=== PATIENT | male | born 1935 | race Caucasian/White ===

== ENCOUNTER 2021-01-27 13:54 | Outpatient (CLI) | payer MEDICARE, OTHER, SELFPAY ==
[2021-01-27] MEDS: ferric carboxy (IVPB) 750 MG in sodium chloride 0.9% (100 ml) 100 ML 460 MG IV (15:45)
--- NOTE | 2021-01-27 19:12 | ONC CON_ITS ---
Dr. Sommers New Patient Note Patient: Jeff Barros Unit #: [id number]: 1935 Dicatated By: Jamey Sommers M.D.Date of Visit: Jan 27, 2021 Onc MED New Patient/Consult Referring Physician: Anita SANTANA Chief Complaint: Anemia. History of Present Illness: This is an 85-year-old man with iron deficiency anemia. He has hypertension and type 2 diabetes. He also has GERD and a history of diverticulitis. He has been anemic, and he has been on oral iron supplementation with polysaccharide iron complex 150 mg 3 times daily. Despite that, his repeat laboratory studies on 12/11/2020 still showed mild to moderately severe anemia with hemoglobin 10.7 g and hematocrit 34.7%. The red cell indices were hypochromic/microcytic. The white blood cell count was 6600 and the platelet count was 179,000. Comprehensive metabolic profile was unremarkable. His B12 level was normal at 377 pg/mL. His serum iron studies showed low serum iron at 33 mcg/dL with transferrin saturation 6% and the ferritin was low at 7 ng/mL, consistent with iron deficiency. He says he feels okay at rest, but he does not have much energy, and it does not last long with activity. He is able to do some light work. ECOG score is 1. His appetite is good and his weight is stable. He has no fever or night sweats. He has occasional cough. He does not complain of shortness of breath or chest pain. He has not been having nausea or abdominal pain, and his acid reflux is adequately managed with medication. He has been having frequent bowel movements for quite a while, but he has not been aware of any blood in the stool or black stools. He has had a previous colonoscopy. He thinks it was about 12 years ago. He has urinary frequency and nocturia, and he also has some incontinence. He has joint pain, mainly in the hips and shoulders. He has just occasional headache. He does not complain of dizziness. 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 Past Medical History: His medical history includes anemia, depression, gastroesophageal reflux disease, hypertension, and type II diabetes. He has a history of diverticulitis. Past Surgical History: His only surgery was an appendectomy. He previously had a colonoscopy, estimated to have been 12 years ago. Medications: glipiZIDE (10 mg) Tablet Oral b.i.d., metFORMIN HCl (1000 mg) Tablet Oral b.i.d., Metoprolol Tartrate (50 mg) Tablet Oral b.i.d., Omeprazole Capsule Delayed Release Oral PRN, Sertraline HCl (50 mg) Tablet Oral daily Allergies: AMBER Inhibitors Social History: Mr. Barros is . He is retired. 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 He has a history of smoking for 4 years when he first got out of school, none since then. He does not drink alcohol. Family History: Father of blood poisoning following an injury. His mother had Parkinson's disease. A brother and a sister both in childbirth. Review Of Symptoms: Constitutional - He feels okay at rest, but his energy does not last long with activity. He is able to do light work. His appetite is good and his weight is stable. He has no fever or night sweats. ECOG score is 1, Eyes - He has cataracts, ENMT - He has hearing loss. He has sinus congestion/drainage. He has had to have teeth pulled. He occasionally has sore throat. No difficulty swallowing, Hematologic/Lymphatic - He has easy bruising. He has been anemic, Respiratory - No shortness of breath. He has occasional cough. No pleuritic pain or hemoptysis, Cardiovascular - No angina pain. No palpitations, Gastrointestinal - No nausea or vomiting. His acid reflux is adequately managed with medication. No diarrhea or constipation. He has been having frequent bowel movements for quite a while. He has hemorrhoids. He has not been aware of any blood in the stool or black stools, Genitourinary (M) - No dysuria or hematuria. He has urinary frequency and nocturia, and he has some bladder incontinence, Musculoskeletal - He has joint pain, mainly in the hips and shoulders., Neurologic - He has occasional headache. No dizziness. He has neuropathy with the diabetes, Psychiatric - He has anxiety and depression. He does not sleep well at night. Vital Signs: Performed on Jan 27, 2021 15:06: 5, 5, 24.69, 1.87 sq.m, 68 in, 98 %, 51 /min (LOW), 18 /min, 199/72 mm(hg) (HIGH), 97.1 F (LOW), and 162.4 lbs (HIGH). Physical Examination: Constitutional - He appears elderly and somewhat frail generally, Eyes - Sclerae nonicteric. Conjunctivae clear, ENMT - No lesions noted in the oral cavity, Neck - No mass or thyromegaly, Hematologic/Lymphatic - No cervical, clavicular, or axillary adenopathy, Respiratory - Lungs are clear with good air movement bilaterally, Cardiovascular - Heart rhythm is regular with a bradycardia. There is no murmur, gallop, or rub noted, Abdomen - Soft and non-tender. Liver and spleen are not enlarged. There is no abdominal mass or ascites noted and there is no inguinal adenopathy, Back/Spine - No spine or CVA tenderness noted, Extremities - No edema. Posterior tibial pulses are palpable bilaterally, Integumentary - No rashes. No suspicious skin lesions noted, Neurologic - No focal neurologic deficits noted. Problem List: 1. Iron deficiency anemia. It is uncertain to what extent it may be due to GI blood loss versus inadequate oral iron absorption, but it is not correcting on an adequate dosage of oral iron replacement. 2. Hypertension. 3. Type 2 diabetes. 4. GERD. 5. History of diverticulitis. 6. Anxiety/depression. Problems Addressed with this Encounter and Plan: Patient with iron deficiency anemia. It is uncertain to what extent it may be due to GI blood loss versus inadequate oral iron absorption, but it is not correcting on an adequate dosage of oral iron replacement. As such, he will be given parenteral iron replacement with 2 infusions of Injectafer. The first will be administered today at a standard dose of 750 mg. He return in 1 week for the second infusion, and he will then be scheduled for 1 month interval follow-up. In the meantime, he will bring in a stool sample for IFOB. If it is positive, he will have further GI evaluation as indicated. Signed By: Jamey Sommers M.D. <<Signature on File>>
== END 2021-01-27 13:55 | disposition home or self-care (01) ==
LOC: ONCMED 14:07
PROVIDERS: Visit Provider Internal Medicine Hematology & Oncology
DX: D50.9 Iron deficiency anemia, unspecified (principal); I10 Essential (primary) hypertension; E11.9 Type 2 diabetes mellitus without complications; K21.9 Gastro-esophageal reflux disease without esophagitis; K57.92 Diverticulitis of intestine, part unspecified, without perforation or abscess without bleeding; F32.A Depression, unspecified; Z79.84 Long term (current) use of oral hypoglycemic drugs; Z79.899 Other long term (current) drug therapy; Z87.891 Personal history of nicotine dependence
CPT/HCPCS: 96365; 99205; J1439

== ENCOUNTER 2021-03-11 09:54 | Outpatient (CLI) | payer MEDICARE, OTHER, SELFPAY ==
[2021-02-03] MEDS: ferric carboxy (IVPB) 750 MG in sodium chloride 0.9% (100 ml) 100 ML 460 MG IV (15:27)
[2021-03-11 10:42] LABS: Basophils # 0.1 10^3/uL (0.0-0.1); Basophils % 0.8 %; Eosinophils # 0.2 10^3/uL (0.0-0.8); Eosinophils % 2.3 %; Hematocrit 43.8 % (42.0-52.0); Hemoglobin 14.4 g/dL (11.7-16.6); Lymphocytes # 1.6 10^3/uL (0.8-4.8); Lymphocytes % 24.4 %; Mean Corpuscular HGB Conc 32.9 g/dL (30.0-36.0); Mean Corpuscular Hemoglobin 27.2 pg (28.0-34.0); Mean Corpuscular Volume 82.8 fl (80-94); Mean Platelet Volume 9.7 fL (7.4-10.4); Monocytes # 0.5 10^3/uL (0.2-0.9); Monocytes % 7.9 %; Neutrophils # 4.24 10^3/uL (1.8-7.7); Neutrophils % 64.3 %; Nucleated Red Blood Cells % 0 %; Platelet Count 164 10^3/cmm (130-400); Red Blood Count 5.29 10^6/uL (4.1-5.3); Red Cell Distribution Width 20.2 % (12.1-15.1); White Blood Count 6.6 10^3/uL (4.0-10.0)
[2021-03-11 10:59] LABS: Ferritin 226 ng/mL (30-400); Iron 105 ug/dL (59-158); Total Iron Binding Capacity 362 mcg/dl; Unsaturated Iron Binding 257 ug/dL (112-347)
--- NOTE | 2021-03-15 10:52 | ONC FU_ITS ---
Dr. Sommers Patient Follow-Up Note Patient: Jeff Barros Unit #: [id number]: 1935 Dicatated By: Jamey Sommers M.D.Date of Visit:Mar 11, 2021 Onc Med Follow-up/Prog Note Chief Complaint: Anemia. History of Present Illness: This is an 85-year-old man with iron deficiency anemia. I had seen him initially on 01/27/2021 after he had been found to have persistent anemia despite oral iron supplementation. His laboratory studies on 12/11/2020 had shown hemoglobin low at 10.7 g with hypochromic/microcytic red cell indices The white blood cell count was 6600 and the platelet count was 179,000. His serum iron studies showed low serum iron at 33 mcg/dL with transferrin saturation 6% and the ferritin was low at 7 ng/mL, consistent with iron deficiency. At the time he had been taking polysaccharide iron complex 150 mg 3 times daily. He had significant fatigue and limited activity tolerance, and with with his anemia not correcting on oral iron supplementation, he was given parenteral iron replacement with 2 infusions of Injectafer. His other medical illnesses include hypertension, type 2 diabetes, and GERD. He has a history of diverticulitis and he also has a history of depression. He had a very remote history of smoking and only for a period of 4 years. He is seen for a follow-up visit. He has been feeling better following the parenteral iron infusions, though his energy is still somewhat variable. He is able to do light work. ECOG score is 1. He has good appetite. He has not had fever. He sometimes has sweating, that seems to be associated with changes in his blood sugar. He has not had sore mouth or throat. He has cough with cold air exposure. He does not complain of shortness of breath or chest pain. He has nausea and he has acid reflux. His bowels are sometimes loose. He has not been aware of having blood in the stool. He has frequent urination. He has some joint pain and he also has neuropathy with the diabetes. Medications: glipiZIDE (10 mg) Tablet Oral b.i.d., metFORMIN HCl (1000 mg) Tablet Oral b.i.d., Metoprolol Tartrate (50 mg) Tablet Oral b.i.d., Omeprazole Capsule Delayed Release Oral PRN, Sertraline HCl (50 mg) Tablet Oral daily Allergies: AMBER Inhibitors Vital Signs: Performed on Mar 11, 2021 11:32 Height - 68.00 in Weight - 160.0 lbs (LOW) BSA - 1.86 sq.m BMI - 24.33 Temperature - 96.9 F (LOW) Pulse - 45 /min (LOW) Respiration - 16 /min BP - 183/74 mm(hg) (HIGH) O2 Sat - 98 % Pain - 0 Fatigue - 2 Physical Examination: Constitutional - He appears somewhat frail generally, Eyes - Sclerae nonicteric. Conjunctivae clear, ENMT - No lesions noted in the oral cavity, Hematologic/Lymphatic - No cervical, clavicular, or axillary adenopathy, Respiratory - Lungs are clear with good air movement bilaterally, Cardiovascular - Heart rhythm is regular. There is no murmur, gallop, or rub noted, Abdomen - Soft. Liver and spleen are not enlarged. There is no abdominal mass or ascites noted and there is no inguinal adenopathy, Extremities - No edema, Neurologic - No focal neurologic deficits noted. Lab/Imaging: Test performed on Mar 11, 2021 10:30 Ferritin 226 ng/mL Iron 105 mcg/dL Iron Binding Capacity (TIBC) 362 mcg/dl % Iron Saturation 29.0 % UIBC 257 mcg/dL WBC 6.6 10 3/uL RBC 5.29 10 6/uL HGB 14.4 g/dL HCT 43.8 % MCV 82.8 fl MCH 27.2 pg MCHC 32.9 g/dL RDW 20.2 % Platelet Count 164 10 3/cmm MPV 9.7 fL Neutrophils 4.24 10 3/uL Lymphocytes 1.6 10 3/uL Monocytes 0.5 10 3/uL Eosinophils 0.2 10 3/uL Basophils 0.1 10 3/uL Neutrophil % 64.3 % Lymphocyte % 24.4 % Monocyte % 7.9 % Eosinophil % 2.3 % Basophils % 0.8 % NRBC % 0 % Test performed on Feb 03, 2021 15:00 Occult Blood -Fecal, IA IFOB N Problem List: 1. Iron deficiency anemia. 2. Hypertension. 3. Type 2 diabetes. 4. GERD. 5. History of diverticulitis. 6. Anxiety/depression. Problems Addressed with this Encounter and Plan: Patient with iron deficiency anemia which failed to correct on an adequate dosage of oral iron replacement. A specific cause for the iron deficiency was not determined, but his stool FIT was negative. As the anemia was not correcting on oral iron supplementation, he was given parenteral iron replacement with 2 infusions of Injectafer. He tolerated it well. He has had a very good clinical response with his hemoglobin now up to 14.4 g. At this point he will continue regular follow-up with Kristina Avila. He should have blood counts rechecked at least every 3 to 6 months. I will see him again as needed. Signed By: Jamey Sommers M.D. <<Signature on File>>
== END 2021-03-11 09:55 | disposition home or self-care (01) ==
PROVIDERS: PCP Nurse Practitioner Family; Visit Provider Internal Medicine Medical Oncology
DX: D50.9 Iron deficiency anemia, unspecified (principal); I10 Essential (primary) hypertension; E11.9 Type 2 diabetes mellitus without complications; K21.9 Gastro-esophageal reflux disease without esophagitis; F41.9 Anxiety disorder, unspecified; F32.9 Major depressive disorder, single episode, unspecified; Z87.19 Personal history of other diseases of the digestive system; Z79.899 Other long term (current) drug therapy
CPT/HCPCS: 36415; 82274; 82728; 83540; 83550; 85025; 96365; 99214; J1439